=== PATIENT | male | born 1990 | race African-American/Black ===

== ENCOUNTER 2024-03-20 23:41 | Emergency (ER) | payer OTHER, SELFPAY ==
[~2024-03-20] VITALS: Ht 182.9 cm; Wt 108.9 kg
[2024-03-21] MEDS ORDERED: CLEO300C2 PO (05:27)
[2024-03-21] MEDS ORDERED: IBUP80TA PO (05:27)
[2024-03-21] MEDS: CLINDAMYCIN 150MG CAPSULE PO ONE (05:35)
[2024-03-21 05:38] VITALS: BP 137/89; TEMP 97.8; O2SAT 98
== END 2024-03-21 05:41 | disposition home or self-care (01) ==
LOC: M ED 23:41
DX: S02.5XXA Fracture of tooth (traumatic), initial encounter for closed fracture (principal); X58.XXXA Exposure to other specified factors, initial encounter; Y92.9 Unspecified place or not applicable; Y93.89 Activity, other specified; Y99.9 Unspecified external cause status; Z88.0 Allergy status to penicillin

== ENCOUNTER 2024-11-21 20:45 | Emergency (ER) | payer OTHER ==
[~2024-11-21] VITALS: Ht 185.4 cm; Wt 100.4 kg
[~2024-11-21 20:45] MED LIST: CLEO300C2 PO; IBUP80TA PO
[2024-11-21 20:48] VITALS: BP 143/60; TEMP 98.4; O2SAT 100
== END 2024-11-21 22:13 | disposition left against medical advice (07) ==
LOC: M ED 20:45
DX: Z53.21 Procedure and treatment not carried out due to patient leaving prior to being seen by health care provider (principal)